=== PATIENT | male | born 1965 | race Caucasian/White ===

== ENCOUNTER 2021-08-16 20:28 | Inpatient (IN) | payer OTHER ==
[~2021-08-16] VITALS: Ht 177.8 cm; Wt 137.5 kg
[2021-08-16 20:30] VITALS: BP 127/88
[2021-08-16 20:46] LABS: BASO % 0.2 % (0.0-1.0); EOS # 0.1 10*3/uL (0.0-0.4); EOS % 1.1 % (1.0-4.0); HEMATOCRIT 42.2 % (42.0-52.0); LYMPH # 0.7 10*3/uL (1.3-4.4); LYMPH % 15.5 % (27.0-41.0); MEAN CELL VOLUME 87.4 fl (80.0-94.0); MEAN CORPUSCULAR HGB CONC 33.2 g/dl (33.0-37.0); MEAN PLATELET VOLUME 10.2 fl (9.6-12.3); MONO # 0.3 10*3/uL (0.1-1.0); MONO % 6.3 % (3.0-9.0); NEUT # 3.4 10*3/uL (2.3-7.9); NEUT % 76.5 % (47.0-73.0); PLATELET COUNT AUTOMATED 115 10*3/uL (130-400); RED BLOOD COUNT 4.83 10*6/uL (4.50-5.90); RED CELL DISTRI WIDTH 13.3 % (0-14.5); WHITE BLOOD COUNT 4.5 10*3/uL (4.8-10.8)
[2021-08-16 20:59] LABS: ALBUMIN 3.2 gm/dl (3.1-4.5); ALKALINE PHOSPHATASE 42 U/L (45-117); BUN 16 mg/dl (7-24); CHLORIDE 101 mmol/L (98-107); CREATININE 1.44 mg/dL (0.70-1.30); SGOT/AST 54 IU/L (3-35); SGPT/ALT 63 U/L (12-78); SODIUM 132 mmol/L (136-145); TOTAL PROTEIN 7.1 gm/dL (6.4-8.2)
[2021-08-16 21:33] VITALS: BP 100/58
[2021-08-16 22:52] VITALS: BP 113/63
[2021-08-17] VITALS (11 sets, daily range): BP systolic 88–153; BP diastolic 39–88
[2021-08-17 07:10] LABS: BASO % 0.2 % (0.0-1.0); HEMATOCRIT 42.3 % (42.0-52.0); LYMPH # 0.6 10*3/uL (1.3-4.4); LYMPH % 12.3 % (27.0-41.0); MEAN CORPUSCULAR HGB 28.4 pg (27.0-31.0); MEAN CORPUSCULAR HGB CONC 32.6 g/dl (33.0-37.0); MEAN PLATELET VOLUME 10.5 fl (9.6-12.3); MONO # 0.2 10*3/uL (0.1-1.0); MONO % 4.5 % (3.0-9.0); NEUT # 4.1 10*3/uL (2.3-7.9); NEUT % 82.4 % (47.0-73.0); PLATELET COUNT AUTOMATED 111 10*3/uL (130-400); RED BLOOD COUNT 4.86 10*6/uL (4.50-5.90); RED CELL DISTRI WIDTH 13.4 % (0-14.5); WHITE BLOOD COUNT 4.9 10*3/uL (4.8-10.8)
[2021-08-17 07:35] LABS: CHLORIDE 103 mmol/L (98-107); POTASSIUM 4.7 mmol/L (3.5-5.1); SODIUM 132 mmol/L (136-145)
[2021-08-17 07:41] LABS: ALKALINE PHOSPHATASE 37 U/L (45-117); BUN 17 mg/dl (7-24); CHOLESTEROL 106 mg/dL (<200); CREATININE 1.22 mg/dL (0.70-1.30); LDH 287 U/L (87-241); LDL CHOLESTEROL 58 mg/dL (9-159); SGOT/AST 66 IU/L (3-35); SGPT/ALT 62 U/L (12-78); TOTAL PROTEIN 6.6 gm/dL (6.4-8.2); TRIGLYCERIDES 103 mg/dl (<150)
[2021-08-17 07:58] LABS: FERRITIN 494.3 ng/mL (22.0-322.0); VITAMIN D, 25-HYDROXY 40.5 ng/mL (30-100)
[2021-08-17] MEDS ORDERED: DAILY VALUE1 EACH PO (14:04)
[2021-08-17] MEDS ORDERED: VITAMIN C1000 M5 PO (14:04)
[2021-08-17] MEDS ORDERED: B COMPLEX1 EACH PO (14:05)
[2021-08-17] MEDS ORDERED: ZYRTEC10 M3 PO (14:05)
[2021-08-17] MEDS ORDERED: METFORMIN HYDR500 MG PO (14:06)
[2021-08-17] MEDS ORDERED: MAGNESIUM100 M1 PO (14:07)
[2021-08-17] MEDS ORDERED: MELATONIN1 MG PO (14:07)
[2021-08-17] MEDS ORDERED: CIALIS2.5 MG PO (14:08)
[2021-08-17] MEDS ORDERED: LISINOPRIL-HCT1 EACH PO (14:09)
[2021-08-17] MEDS ORDERED: ASPIRIN ADULT L81 M2 PO (14:10)
[2021-08-17] MEDS ORDERED: OMEPRAZOLE10 MG PO (14:11)
[2021-08-17] MEDS ORDERED: GLIMEPIRIDE2 MG PO (22:28)
[2021-08-18 06:19] LABS: MEAN CELL VOLUME 87.5 fl (80.0-94.0); MEAN CORPUSCULAR HGB 28.6 pg (27.0-31.0); MEAN CORPUSCULAR HGB CONC 32.7 g/dl (33.0-37.0); MEAN PLATELET VOLUME 10.7 fl (9.6-12.3); MONO # 0.6 10*3/uL (0.1-1.0); MONO % 9.8 % (3.0-9.0); NEUT # 4.8 10*3/uL (2.3-7.9); NEUT % 74.3 % (47.0-73.0); PLATELET COUNT AUTOMATED 133 10*3/uL (130-400); RED BLOOD COUNT 5.14 10*6/uL (4.50-5.90); RED CELL DISTRI WIDTH 13.1 % (0-14.5); WHITE BLOOD COUNT 6.5 10*3/uL (4.8-10.8)
[2021-08-18 06:20] LABS: CHLORIDE 103 mmol/L (98-107); POTASSIUM 4.6 mmol/L (3.5-5.1); SODIUM 133 mmol/L (136-145)
[2021-08-18 06:33] LABS: ALBUMIN 2.9 gm/dl (3.1-4.5); ALKALINE PHOSPHATASE 38 U/L (45-117); BUN 24 mg/dl (7-24); CREATININE 1.27 mg/dL (0.70-1.30); SGOT/AST 65 IU/L (3-35); SGPT/ALT 62 U/L (12-78)
[2021-08-18 08:00] VITALS: BP 113/56
[2021-08-18 12:00] VITALS: BP 101/63; BP 115/62
[2021-08-18 16:00] VITALS: BP 114/65
[2021-08-18 20:00] VITALS: BP 113/77
[2021-08-19] VITALS: BP 101/62
[2021-08-19 06:50] LABS: BASO % 0.1 % (0.0-1.0); HEMATOCRIT 42.5 % (42.0-52.0); LYMPH # 1.3 10*3/uL (1.3-4.4); LYMPH % 16.2 % (27.0-41.0); MEAN CELL VOLUME 88.4 fl (80.0-94.0); MEAN CORPUSCULAR HGB 28.3 pg (27.0-31.0); MEAN PLATELET VOLUME 10.8 fl (9.6-12.3); MONO # 0.8 10*3/uL (0.1-1.0); NEUT # 5.9 10*3/uL (2.3-7.9); NEUT % 72.7 % (47.0-73.0); PLATELET COUNT AUTOMATED 166 10*3/uL (130-400); RED BLOOD COUNT 4.81 10*6/uL (4.50-5.90); RED CELL DISTRI WIDTH 13.2 % (0-14.5); WHITE BLOOD COUNT 8.1 10*3/uL (4.8-10.8)
[2021-08-19 07:06] LABS: ALBUMIN 2.8 gm/dl (3.1-4.5); BUN 25 mg/dl (7-24); CHLORIDE 104 mmol/L (98-107); CREATININE 1.15 mg/dL (0.70-1.30); POTASSIUM 4.5 mmol/L (3.5-5.1); SGOT/AST 59 IU/L (3-35); SGPT/ALT 58 U/L (12-78); SODIUM 135 mmol/L (136-145); TOTAL PROTEIN 6.5 gm/dL (6.4-8.2)
[2021-08-19 07:08] LABS: ALKALINE PHOSPHATASE 36 U/L (45-117); LDH 304 U/L (87-241)
[2021-08-19 08:00] VITALS: BP 118/62
[2021-08-19 12:00] VITALS: BP 98/61
[2021-08-19 16:00] VITALS: BP 120/67
[2021-08-19 20:00] VITALS: BP 113/69
[2021-08-20] VITALS: BP 116/60
[2021-08-20 06:59] LABS: BASO % 0.2 % (0.0-1.0); HEMATOCRIT 44.5 % (42.0-52.0); LYMPH # 1.5 10*3/uL (1.3-4.4); LYMPH % 17.1 % (27.0-41.0); MEAN CELL VOLUME 88.5 fl (80.0-94.0); MEAN CORPUSCULAR HGB 28.6 pg (27.0-31.0); MEAN CORPUSCULAR HGB CONC 32.4 g/dl (33.0-37.0); MONO # 0.8 10*3/uL (0.1-1.0); MONO % 9.5 % (3.0-9.0); NEUT # 6.2 10*3/uL (2.3-7.9); NEUT % 71.6 % (47.0-73.0); PLATELET COUNT AUTOMATED 166 10*3/uL (130-400); RED BLOOD COUNT 5.03 10*6/uL (4.50-5.90); RED CELL DISTRI WIDTH 13.2 % (0-14.5); WHITE BLOOD COUNT 8.6 10*3/uL (4.8-10.8)
[2021-08-20 07:14] LABS: ALBUMIN 2.7 gm/dl (3.1-4.5); ALKALINE PHOSPHATASE 39 U/L (45-117); BUN 27 mg/dl (7-24); CHLORIDE 105 mmol/L (98-107); CPK 662 U/L (39-308); CREATININE 1.14 mg/dL (0.70-1.30); LDH 340 U/L (87-241); POTASSIUM 4.8 mmol/L (3.5-5.1); SGOT/AST 94 IU/L (3-35); SGPT/ALT 97 U/L (12-78); SODIUM 136 mmol/L (136-145); TOTAL PROTEIN 6.7 gm/dL (6.4-8.2)
[2021-08-20 08:00] VITALS: BP 101/66
[2021-08-20 12:00] VITALS: BP 109/57
[2021-08-20 16:00] VITALS: BP 106/59
[2021-08-20 20:00] VITALS: BP 119/70
[2021-08-21] VITALS: BP 111/61
[2021-08-21 06:36] LABS: HEMATOCRIT 45.1 % (42.0-52.0); MEAN CELL VOLUME 87.4 fl (80.0-94.0); MEAN CORPUSCULAR HGB 28.5 pg (27.0-31.0); MEAN CORPUSCULAR HGB CONC 32.6 g/dl (33.0-37.0); MEAN PLATELET VOLUME 10.8 fl (9.6-12.3); PLATELET COUNT AUTOMATED 213 10*3/uL (130-400); RED BLOOD COUNT 5.16 10*6/uL (4.50-5.90); RED CELL DISTRI WIDTH 13.2 % (0-14.5); WHITE BLOOD COUNT 10.4 10*3/uL (4.8-10.8)
[2021-08-21 06:56] LABS: ALBUMIN 2.8 gm/dl (3.1-4.5); ALKALINE PHOSPHATASE 50 U/L (45-117); BUN 28 mg/dl (7-24); CHLORIDE 106 mmol/L (98-107); CREATININE 1.16 mg/dL (0.70-1.30); LDH 346 U/L (87-241); POTASSIUM 4.6 mmol/L (3.5-5.1); SGOT/AST 98 IU/L (3-35); SGPT/ALT 174 U/L (12-78); SODIUM 137 mmol/L (136-145); TOTAL PROTEIN 6.7 gm/dL (6.4-8.2)
[2021-08-21 07:37] LABS: CPK 371 U/L (39-308)
[2021-08-21 08:00] VITALS: BP 113/75
[2021-08-21 08:33] LABS: PLATELET SUFFICIENCY NORMAL (NORMAL); TOTAL CELLS COUNTED 100 #CELLS
[2021-08-21 12:00] VITALS: BP 126/61
[2021-08-21] MEDS ORDERED: DECADRON4 MG PO (12:08)
[2021-08-21] MEDS ORDERED: LISINOPRIL20 MG PO (12:08)
== END 2021-08-21 18:15 | disposition home health service (06) | DRG 720 ==
LOC: ED 20:28 → 4E 21:54 → EDHOLD 21:54 → 4E 08-17 19:46
PROVIDERS: Hospitalist; Internal Medicine; Registered Nurse; ADMIT Internal Medicine; ATTEND Internal Medicine
PROC: XW033E5 Introduction of Remdesivir Anti-infective into Peripheral Vein, Percutaneous Approach, New Technology Group 5 (ICD-10-PCS; principal; 2021-08-16)
PROC: 5A09357 Assistance with Respiratory Ventilation, Less than 24 Consecutive Hours, Continuous Positive Airway Pressure (ICD-10-PCS; 2021-08-18)
PROC: 5A09357 Assistance with Respiratory Ventilation, Less than 24 Consecutive Hours, Continuous Positive Airway Pressure (ICD-10-PCS; 2021-08-21)
DX: A41.9 Sepsis, unspecified organism (principal); U07.1 COVID-19; J12.82 Pneumonia due to coronavirus disease 2019; J96.01 Acute respiratory failure with hypoxia; N17.0 Acute kidney failure with tubular necrosis; E87.1 Hypo-osmolality and hyponatremia; E86.0 Dehydration; R74.01 Elevation of levels of liver transaminase levels; E66.01 Morbid (severe) obesity due to excess calories; K21.9 Gastro-esophageal reflux disease without esophagitis; E11.65 Type 2 diabetes mellitus with hyperglycemia; E44.0 Moderate protein-calorie malnutrition; R65.20 Severe sepsis without septic shock; Z68.41 Body mass index [BMI] 40.0-44.9, adult; Z88.0 Allergy status to penicillin; Z88.8 Allergy status to other drugs, medicaments and biological substances; Z82.49 Family history of ischemic heart disease and other diseases of the circulatory system; Z82.3 Family history of stroke; Z83.3 Family history of diabetes mellitus

== ENCOUNTER 2021-08-30 22:20 | Emergency (ER) | payer OTHER ==
[~2021-08-30] VITALS: Ht 177.8 cm; Wt 117.9 kg
[~2021-08-30 22:20] MED LIST: ASPIRIN ADULT L81 M2 PO; B COMPLEX1 EACH PO; CIALIS2.5 MG PO; DAILY VALUE1 EACH PO; DECADRON4 MG PO; GLIMEPIRIDE2 MG PO; LISINOPRIL-HCT1 EACH PO; LISINOPRIL20 MG PO; MAGNESIUM100 M1 PO; MELATONIN1 MG PO; METFORMIN HYDR500 MG PO; OMEPRAZOLE10 MG PO; VITAMIN C1000 M5 PO; ZYRTEC10 M3 PO
[2021-08-30 22:23] VITALS: BP 106/71
[2021-08-30 22:36] LABS: BASO # 0.1 10*3/uL (0.0-0.1); BASO % 0.6 % (0.0-1.0); EOS # 0.2 10*3/uL (0.0-0.4); EOS % 1.3 % (1.0-4.0); HEMATOCRIT 44.5 % (42.0-52.0); LYMPH # 2.2 10*3/uL (1.3-4.4); LYMPH % 14.1 % (27.0-41.0); MEAN CELL VOLUME 90.1 fl (80.0-94.0); MEAN CORPUSCULAR HGB 28.5 pg (27.0-31.0); MEAN CORPUSCULAR HGB CONC 31.7 g/dl (33.0-37.0); MEAN PLATELET VOLUME 9.7 fl (9.6-12.3); MONO # 1.3 10*3/uL (0.1-1.0); MONO % 8.1 % (3.0-9.0); NEUT # 11.8 10*3/uL (2.3-7.9); PLATELET COUNT AUTOMATED 214 10*3/uL (130-400); RED BLOOD COUNT 4.94 10*6/uL (4.50-5.90); RED CELL DISTRI WIDTH 13.7 % (0-14.5); WHITE BLOOD COUNT 15.9 10*3/uL (4.8-10.8)
[2021-08-30 22:52] LABS: ALBUMIN 2.5 gm/dl (3.1-4.5); CREATININE 1.73 mg/dL (0.70-1.30); POTASSIUM 4.4 mmol/L (3.5-5.1); TOTAL PROTEIN 6.1 gm/dL (6.4-8.2)
== END 2021-08-31 02:04 | disposition home or self-care (01) ==
LOC: ED 22:20
PROVIDERS: Internal Medicine
DX: R04.2 Hemoptysis (principal); Z88.0 Allergy status to penicillin; Z88.8 Allergy status to other drugs, medicaments and biological substances; Z79.899 Other long term (current) drug therapy; Z79.82 Long term (current) use of aspirin

== ENCOUNTER 2023-01-25 17:23 | Emergency (ER) | payer OTHER ==
[~2023-01-25] VITALS: Ht 180.3 cm; Wt 136.1 kg
[2023-01-25 18:12] VITALS: BP 117/77
[2023-01-25 19:07] LABS: BASO # 0.1 10*3/uL (0.0-0.1); BASO % 0.6 % (0.0-1.0); EOS # 0.2 10*3/uL (0.0-0.4); EOS % 2.6 % (1.0-4.0); HEMATOCRIT 41.7 % (42.0-52.0); LYMPH # 2.1 10*3/uL (1.3-4.4); LYMPH % 27.2 % (27.0-41.0); MEAN CELL VOLUME 90.1 fl (80.0-94.0); MEAN CORPUSCULAR HGB 29.2 pg (27.0-31.0); MEAN CORPUSCULAR HGB CONC 32.4 g/dl (33.0-37.0); MEAN PLATELET VOLUME 9.4 fl (9.6-12.3); MONO # 0.7 10*3/uL (0.1-1.0); MONO % 8.5 % (3.0-9.0); NEUT # 4.7 10*3/uL (2.3-7.9); NEUT % 60.2 % (47.0-73.0); PLATELET COUNT AUTOMATED 153 10*3/uL (130-400); RED BLOOD COUNT 4.63 10*6/uL (4.50-5.90); RED CELL DISTRI WIDTH 13.6 % (0-14.5); WHITE BLOOD COUNT 7.7 10*3/uL (4.8-10.8)
[2023-01-25 19:22] LABS: ALKALINE PHOSPHATASE 36 U/L (46-116); BUN 15 mg/dl (9-23); CHLORIDE 107 mmol/L (98-107); POTASSIUM 4.6 mmol/L (3.4-5.1); SGPT/ALT 54 U/L (10-49); TOTAL PROTEIN 6.8 gm/dL (6.0-8.0)
[2023-01-25] MEDS ORDERED: PREDNISONE50 MG PO (20:39)
== END 2023-01-25 20:46 | disposition home or self-care (01) ==
LOC: ED 17:23
PROVIDERS: Nurse Practitioner Family
DX: M10.071 Idiopathic gout, right ankle and foot (principal); Z88.0 Allergy status to penicillin; Z88.8 Allergy status to other drugs, medicaments and biological substances; Z79.899 Other long term (current) drug therapy; Z79.82 Long term (current) use of aspirin; Z98.890 Other specified postprocedural states

== ENCOUNTER 2023-07-19 05:06 | Emergency (ER) | payer OTHER ==
[~2023-07-19] VITALS: Ht 182.8 cm; Wt 136.1 kg
[~2023-07-19 05:06] MED LIST changes: +PREDNISONE50 MG PO
[2023-07-19 05:20] VITALS: BP 153/87
[2023-07-19 05:47] LABS: ALKALINE PHOSPHATASE 44 U/L (46-116); BUN 20 mg/dl (9-23); CHLORIDE 104 mmol/L (98-107); POTASSIUM 4.5 mmol/L (3.4-5.1); SGPT/ALT 40 U/L (10-49); TOTAL PROTEIN 7.2 gm/dL (6.0-8.0)
[2023-07-19 06:03] LABS: BASO # 0.1 10*3/uL (0.0-0.1); BASO % 0.9 % (0.0-1.0); EOS # 0.2 10*3/uL (0.0-0.4); EOS % 2.9 % (1.0-4.0); HEMATOCRIT 44.6 % (42.0-52.0); LYMPH # 2.2 10*3/uL (1.3-4.4); LYMPH % 27.2 % (27.0-41.0); MEAN CORPUSCULAR HGB 29.5 pg (27.0-31.0); MEAN CORPUSCULAR HGB CONC 33.2 g/dl (33.0-37.0); MEAN PLATELET VOLUME 10.5 fl (9.6-12.3); MONO # 0.8 10*3/uL (0.1-1.0); MONO % 10.2 % (3.0-9.0); NEUT # 4.6 10*3/uL (2.3-7.9); NEUT % 56.9 % (47.0-73.0); PLATELET COUNT AUTOMATED 183 10*3/uL (130-400); RED BLOOD COUNT 5.01 10*6/uL (4.50-5.90); RED CELL DISTRI WIDTH 13.8 % (0-14.5)
[2023-07-19 06:29] LABS: ACT PARTIAL THROMBO TIME 26.5 SECONDS (20.0-32.1)
== END 2023-07-19 08:18 | disposition home or self-care (01) ==
LOC: ED 05:06
PROVIDERS: Internal Medicine
DX: R05.9 Cough, unspecified (principal); M94.0 Chondrocostal junction syndrome [Tietze]; I10 Essential (primary) hypertension; J45.909 Unspecified asthma, uncomplicated; E78.00 Pure hypercholesterolemia, unspecified; K21.9 Gastro-esophageal reflux disease without esophagitis; Z86.16 Personal history of COVID-19; Z88.0 Allergy status to penicillin; Z88.8 Allergy status to other drugs, medicaments and biological substances; Z96.653 Presence of artificial knee joint, bilateral; Z95.5 Presence of coronary angioplasty implant and graft; Z90.89 Acquired absence of other organs

== ENCOUNTER 2024-04-22 17:46 | Emergency (ER) | payer OTHER ==
[2024-04-22 17:58] VITALS: BP 145/78
== END 2024-04-22 19:30 | disposition home or self-care (01) ==
LOC: ED 17:46
DX: S63.613A Unspecified sprain of left middle finger, initial encounter (principal); S16.1XXA Strain of muscle, fascia and tendon at neck level, initial encounter; I10 Essential (primary) hypertension; J45.909 Unspecified asthma, uncomplicated; E78.00 Pure hypercholesterolemia, unspecified; K21.9 Gastro-esophageal reflux disease without esophagitis; Z88.0 Allergy status to penicillin; Z88.8 Allergy status to other drugs, medicaments and biological substances; Z96.653 Presence of artificial knee joint, bilateral; Z95.5 Presence of coronary angioplasty implant and graft; Z98.890 Other specified postprocedural states; Z90.89 Acquired absence of other organs; V53.5XXA Driver of pick-up truck or van injured in collision with car, pick-up truck or van in traffic accident, initial encounter; Y93.89 Activity, other specified; Y92.410 Unspecified street and highway as the place of occurrence of the external cause; Y99.8 Other external cause status

== ENCOUNTER 2024-12-13 14:04 | Emergency (ER) | payer OTHER ==
[~2024-12-13] VITALS: Ht 177.8 cm; Wt 124.7 kg
[2024-12-13 14:04] VITALS: BP 149/86
[2024-12-13] MEDS ORDERED: Ondansetron Hydrochloride 4 MG/2 ML VIAL IV ONE (14:15)
[2024-12-13] MEDS ORDERED: Albuterol Sulfate 2.5 MG/3 ML VIAL NEB ONE (14:15)
[2024-12-13] MEDS ORDERED: methylPREDNISolone sod succ 125 MG VIAL IV ONE (14:20)
[2024-12-13] MEDS ORDERED: MORPHINE Sulfate 2 MG/ML SYR IV ONE (14:20)
[2024-12-13] MEDS ORDERED: MAGNESIUM SULFATE 50 ML IV ONE (14:20)
[2024-12-13 14:42] LABS: BASO % 0.7 % (0.0-1.0); EOS # 0.3 10*3/uL (0.0-0.4); EOS % 5.1 % (1.0-4.0); HEMATOCRIT 46.3 % (42.0-52.0); MEAN CELL VOLUME 89.9 fl (80.0-94.0); MEAN CORPUSCULAR HGB 29.9 pg (27.0-31.0); MEAN CORPUSCULAR HGB CONC 33.3 g/dl (33.0-37.0); MEAN PLATELET VOLUME 9.9 fl (9.6-12.3); MONO # 0.5 10*3/uL (0.1-1.0); MONO % 8.2 % (3.0-9.0); NEUT # 2.7 10*3/uL (2.3-7.9); NEUT % 48.1 % (47.0-73.0); PLATELET COUNT AUTOMATED 128 10*3/uL (130-400); RED BLOOD COUNT 5.15 10*6/uL (4.50-5.90); RED CELL DISTRI WIDTH 12.8 % (0-14.5); WHITE BLOOD COUNT 5.5 10*3/uL (4.8-10.8)
[2024-12-13 14:56] LABS: BUN 18 mg/dl (9-23); CHLORIDE 104 mmol/L (98-107); POTASSIUM 4.2 mmol/L (3.4-5.1)
[2024-12-13] MEDS ORDERED: AVPAK AZITHROM250 M1 PO (15:30)
[2024-12-13] MEDS ORDERED: PREDNISONE20 M1 PO (15:30)
[2024-12-13] MEDS ORDERED: AZITHROMYCIN 250 MG TAB PO ONE (16:00)
== END 2024-12-13 16:11 | disposition home or self-care (01) ==
LOC: ED 14:04
PROVIDERS: Emergency Medicine
DX: J45.901 Unspecified asthma with (acute) exacerbation (principal); I10 Essential (primary) hypertension; E11.9 Type 2 diabetes mellitus without complications; E78.00 Pure hypercholesterolemia, unspecified; I25.10 Atherosclerotic heart disease of native coronary artery without angina pectoris; K21.9 Gastro-esophageal reflux disease without esophagitis; Z88.0 Allergy status to penicillin; Z88.8 Allergy status to other drugs, medicaments and biological substances; Z96.653 Presence of artificial knee joint, bilateral; Z95.5 Presence of coronary angioplasty implant and graft; Z98.890 Other specified postprocedural states; Z90.89 Acquired absence of other organs

== ENCOUNTER 2025-10-07 06:43 | Inpatient (IN) | payer OTHER ==
[~2025-10-07] VITALS: Ht 180.3 cm; Wt 120.7 kg
[~2025-10-07 06:43] MED LIST changes: +AVPAK AZITHROM250 M1 PO; -CIALIS2.5 MG PO; +CIALIS5 MG PO; +PREDNISONE20 M1 PO
[2025-10-07 06:58] VITALS: BP 156/87
[2025-10-07] MEDS ORDERED: Ondansetron Hydrochloride 4 MG/2 ML VIAL IV ONE (07:25)
[2025-10-07] MEDS ORDERED: SODIUM CHLORIDE 0.9% 1,000 ML IV ONE ×2 (07:25→10:15)
[2025-10-07 07:34] LABS: BASO # 0.0 10*3/uL (0.0-0.1); BASO % 0.5 % (0.0-1.0); EOS # 0.2 10*3/uL (0.0-0.4); EOS % 2.6 % (1.0-4.0); MEAN CELL VOLUME 90.5 fl (80.0-94.0); MEAN CORPUSCULAR HGB 29.5 pg (27.0-31.0); MEAN PLATELET VOLUME 9.7 fl (9.6-12.3); MONO # 0.5 10*3/uL (0.1-1.0); MONO % 6.6 % (3.0-9.0); NEUT # 5.7 10*3/uL (2.3-7.9); NEUT % 74.1 % (47.0-73.0); NUCLEATED RED BLOOD CELL 0.0 % (0.0-0.0); NUCLEATED RED BLOOD CELL 0.0 10*3/uL (0.0-0.0); PLATELET COUNT AUTOMATED 154 10*3/uL (130-400); RED CELL DISTRI WIDTH 13.4 % (0-14.5)
[2025-10-07 07:47] LABS: ACT PARTIAL THROMBO TIME 25.9 SECONDS (20.0-32.1)
[2025-10-07 07:59] LABS: BUN 15 mg/dl (9-23); SGPT/ALT 28 U/L (5-49)
[2025-10-07] MEDS ORDERED: GINSENG100 M2 PO (10:44)
[2025-10-07] MEDS ORDERED: CINNAMON EXTRA500 MG PO (10:44)
[2025-10-07] MEDS ORDERED: MAGNESIUM GLYC120 M1 PO (10:45)
[2025-10-07] MEDS ORDERED: FARXIGA10 M1 PO (10:45)
[2025-10-07] MEDS ORDERED: OZEMPIC0.25 MG/03 SQ (10:46)
[2025-10-07] MEDS ORDERED: FINASTERIDE5 M1 PO (10:46)
[2025-10-07] MEDS ORDERED: VENTOLIN 02.5 MG/3 M INH (10:47)
[2025-10-07] MEDS ORDERED: EPIPEN 2-P0.3 MG/0.3 IJ (10:47)
[2025-10-07] MEDS ORDERED: ATORVASTATIN CA10 M1 PO (10:49)
[2025-10-07 11:10] VITALS: BP 130/76
[2025-10-07 12:00] VITALS: BP 130/76
[2025-10-07] MEDS ORDERED: ACETAMINOPHEN 650 MG SUPP R PRN (12:00)
[2025-10-07] MEDS ORDERED: BISACODYL 10 MG SUPP R PRN (12:00)
[2025-10-07] MEDS ORDERED: Ondansetron Hydrochloride 4 MG/2 ML VIAL IV PRN (12:00)
[2025-10-07 16:00] VITALS: BP 116/67
[2025-10-07] MEDS ORDERED: ATORVASTATIN CALCIUM 10 MG TAB PO SCH (18:00)
[2025-10-07] MEDS ORDERED: DEXTROSE 50% 25 GM/50 ML VIAL IV PRN (18:10)
[2025-10-07 20:00] VITALS: BP 142/78
[2025-10-07] MEDS ORDERED: INSULIN LISPRO 1 UNIT/0.01 ML SQ SCH (22:00)
[2025-10-08] VITALS: BP 136/70
[2025-10-08] MEDS ORDERED: OMEPRAZOLE 10 MG CAP PO SCH (06:00)
[2025-10-08 06:30] LABS: BUN 10 mg/dl (9-23); FREE T4 1.29 ng/dl (0.89-1.76); LDL CHOLESTEROL 53 mg/dL (9-159)
[2025-10-08 06:42] LABS: BASO # 0.1 10*3/uL (0.0-0.1); BASO % 0.7 % (0.0-1.0); EOS # 0.2 10*3/uL (0.0-0.4); EOS % 3.2 % (1.0-4.0); MEAN CELL VOLUME 89.6 fl (80.0-94.0); MEAN CORPUSCULAR HGB 29.3 pg (27.0-31.0); MEAN PLATELET VOLUME 9.9 fl (9.6-12.3); MONO # 0.6 10*3/uL (0.1-1.0); MONO % 8.2 % (3.0-9.0); NEUT # 4.3 10*3/uL (2.3-7.9); NEUT % 63.1 % (47.0-73.0); NUCLEATED RED BLOOD CELL 0.0 % (0.0-0.0); NUCLEATED RED BLOOD CELL 0.0 10*3/uL (0.0-0.0); PLATELET COUNT AUTOMATED 148 10*3/uL (130-400); RED CELL DISTRI WIDTH 13.5 % (0-14.5); VITAMIN D, 25-HYDROXY 42.2 ng/mL (30-100)
[2025-10-08 08:00] VITALS: BP 134/73
[2025-10-08] MEDS ORDERED: TADALAFIL 5 MG PO SCH (10:00)
[2025-10-08] MEDS ORDERED: FINASTERIDE 5 MG TAB PO SCH (10:00)
[2025-10-08] MEDS ORDERED: ASPIRIN ENTERIC COATED 81 MG TAB PO SCH (10:00)
[2025-10-08 12:00] VITALS: BP 127/56
[2025-10-08] MEDS ORDERED: DULCOLAX5 M1 PO (14:40)
[2025-10-08 16:00] VITALS: BP 117/65
== END 2025-10-08 17:10 | disposition home or self-care (01) | DRG 390 ==
LOC: ED 06:43 → ICCU 10:24 → EDHOLD 10:24 → 4E 10:50 → ICCU 14:49
PROVIDERS: Emergency Medicine; ADMIT Internal Medicine; ATTEND Internal Medicine
DX: K56.50 Intestinal adhesions [bands], unspecified as to partial versus complete obstruction (principal); K21.9 Gastro-esophageal reflux disease without esophagitis; G47.33 Obstructive sleep apnea (adult) (pediatric); E66.01 Morbid (severe) obesity due to excess calories; E87.8 Other disorders of electrolyte and fluid balance, not elsewhere classified; E11.65 Type 2 diabetes mellitus with hyperglycemia; I10 Essential (primary) hypertension; C61 Malignant neoplasm of prostate; N20.0 Calculus of kidney; Z96.653 Presence of artificial knee joint, bilateral; Z88.8 Allergy status to other drugs, medicaments and biological substances; Z91.09 Other allergy status, other than to drugs and biological substances; Z79.899 Other long term (current) drug therapy; Z79.01 Long term (current) use of anticoagulants; Z79.82 Long term (current) use of aspirin; Z82.49 Family history of ischemic heart disease and other diseases of the circulatory system; Z83.3 Family history of diabetes mellitus; Z82.3 Family history of stroke; Z82.5 Family history of asthma and other chronic lower respiratory diseases; Z86.16 Personal history of COVID-19; Z68.37 Body mass index [BMI] 37.0-37.9, adult